=== PATIENT | female | born 1980 | race Caucasian/White ===

== ENCOUNTER → 2024-06-27 11:01 | Outpatient (REF) | payer BC, SELFPAY | LOC: WDC 11:01 | PROVIDERS: ATTENDING PHYSICIAN Obstetrics & Gynecology Gynecology; FAMILY PHYSICIAN Family Medicine | DX: Z01.419 Encounter for gynecological examination (general) (routine) without abnormal findings (principal); Z12.31 Encounter for screening mammogram for malignant neoplasm of breast | CPT/HCPCS: 77063; 77067 ==

== ENCOUNTER → 2025-07-23 15:10 | Outpatient (REF) | payer BC, SELFPAY | LOC: WDC 15:10 | PROVIDERS: ATTENDING PHYSICIAN Obstetrics & Gynecology Gynecology; FAMILY PHYSICIAN Family Medicine | DX: Z12.31 Encounter for screening mammogram for malignant neoplasm of breast (principal) | CPT/HCPCS: 77063; 77067 ==